=== PATIENT | female | born 1985 | race Two or more races ===

== ENCOUNTER → 2024-05-14 | Outpatient (CLI) | payer OTHER | LOC: M PLALAB 10:56 | PROVIDERS: ATTEND Nurse Practitioner Women's Health | DX: O09.511 Supervision of elderly primigravida, first trimester (principal); Z3A.11 11 weeks gestation of pregnancy ==

== ENCOUNTER → 2024-05-15 | Outpatient (CLI) | payer OTHER | LOC: M RAD 13:50 | PROVIDERS: ATTEND Nurse Practitioner Women's Health | DX: O09.511 Supervision of elderly primigravida, first trimester (principal); Z3A.01 Less than 8 weeks gestation of pregnancy ==

== ENCOUNTER → 2024-05-16 | Outpatient (CLI) | payer OTHER | LOC: M PLALAB 12:33 | PROVIDERS: ATTEND Nurse Practitioner Women's Health | DX: O09.511 Supervision of elderly primigravida, first trimester (principal); Z3A.11 11 weeks gestation of pregnancy ==

== ENCOUNTER → 2024-05-22 | Outpatient (CLI) | payer OTHER | LOC: M PLALAB 07:38 | PROVIDERS: ATTEND Nurse Practitioner Women's Health | DX: O02.1 Missed abortion (principal) ==

== ENCOUNTER → 2025-04-15 | Outpatient (CLI) | payer BC | LOC: M LAB 09:42 | PROVIDERS: ATTEND Obstetrics & Gynecology | DX: O30.001 Twin pregnancy, unspecified number of placenta and unspecified number of amniotic sacs, first trimester (principal); Z3A.00 Weeks of gestation of pregnancy not specified ==

== ENCOUNTER → 2025-04-23 | Outpatient (CLI) | payer BC | LOC: M WHC 14:09 | PROVIDERS: ATTEND Obstetrics & Gynecology | DX: O30.001 Twin pregnancy, unspecified number of placenta and unspecified number of amniotic sacs, first trimester (principal); Z3A.14 14 weeks gestation of pregnancy ==

== ENCOUNTER → 2025-04-29 | Outpatient (REF) | payer BC ==
[2025-04-29 13:36] LABS: APPEARANCE, URINE CLEAR (CLEAR); BACTERIA, URINE AUTO 1+ (NEGATIVE); BILIRUBIN, URINE AUTO NEGATIVE (NEGATIVE); BLOOD, URINE BLOOD 2+ (NEGATIVE); GLUCOSE, URINE (UA) AUTO NEGATIVE (NEGATIVE); KETONE, URINE AUTO NEGATIVE (NEGATIVE); LEUKOCYTE ESTERASE, URINE AUTO 1+ (NEGATIVE); NITRITE, URINE AUTO NEGATIVE (NEGATIVE); PROTEIN, URINE AUTO NEGATIVE (NEGATIVE); RBC, URINE AUTO 3 /HPF (0-3); SPECIFIC GRAVITY URINE AUTO 1.005 (1.002-1.035); SQUAMOUS EPITHELIAL CELL UR AU 1 /HPF (0-6); UROBILINOGEN, URINE AUTO 0.2 mg/dL (0.0-2.0); WBC, URINE AUTO 3 /HPF (0-3)
== END ==
LOC: M SFHCWAGY 12:50
PROVIDERS: ATTEND Obstetrics & Gynecology
DX: O30.001 Twin pregnancy, unspecified number of placenta and unspecified number of amniotic sacs, first trimester (principal)

== ENCOUNTER → 2025-05-27 | Outpatient (CLI) | payer BC ==
[2025-05-27 15:45] LABS: PLATELET COUNT, AUTOMATED 311 10^3/uL (150-450)
[2025-05-27 16:50] LABS: HIV 1&2 SCREEN NEGATIVE (NEGATIVE)
[2025-05-27 16:52] LABS: Trichomonas vaginalis (AMP) NOT DETECTED (NEGATIVE)
[2025-05-27 16:57] LABS: HEPATITIS C VIRUS ABY INDEX < 0.02 INDEX (<0.8)
[2025-05-27 17:15] LABS: GC DNA AMPLIFICATION NEGATIVE (NEGATIVE)
== END ==
LOC: M PLALAB 14:10
PROVIDERS: ATTEND Obstetrics & Gynecology
DX: Z34.81 Encounter for supervision of other normal pregnancy, first trimester (principal)

== ENCOUNTER → 2025-06-08 | Outpatient (CLI) | payer BC | LOC: M WHC 08:07 | PROVIDERS: ATTEND Obstetrics & Gynecology | DX: O30.032 Twin pregnancy, monochorionic/diamniotic, second trimester (principal); Z3A.19 19 weeks gestation of pregnancy ==

== ENCOUNTER → 2025-07-15 | Outpatient (REF) | payer BC ==
[2025-07-15 13:37] LABS: APPEARANCE, URINE HAZY (CLEAR); BACTERIA, URINE AUTO 1+ (NEGATIVE); BILIRUBIN, URINE AUTO NEGATIVE (NEGATIVE); BLOOD, URINE BLOOD 1+ (NEGATIVE); GLUCOSE, URINE (UA) AUTO NEGATIVE (NEGATIVE); KETONE, URINE AUTO NEGATIVE (NEGATIVE); LEUKOCYTE ESTERASE, URINE AUTO 1+ (NEGATIVE); NITRITE, URINE AUTO NEGATIVE (NEGATIVE); PROTEIN, URINE AUTO NEGATIVE (NEGATIVE); RBC, URINE AUTO 1 /HPF (0-3); SPECIFIC GRAVITY URINE AUTO 1.005 (1.002-1.035); SQUAMOUS EPITHELIAL CELL UR AU 1 /HPF (0-6); UROBILINOGEN, URINE AUTO 0.2 mg/dL (0.0-2.0); WBC, URINE AUTO 2 /HPF (0-3)
== END ==
LOC: M LAB REF 12:59
PROVIDERS: ATTEND Advanced Practice Midwife
DX: R30.0 Dysuria (principal)

== ENCOUNTER → 2025-07-17 | Outpatient (CLI) | payer BC ==
[~2025-07-17] MED LIST: CALC500C15 PO; PRENTAB9 PO; VITAD400CA FT
== END ==
LOC: M RAD 10:06
PROVIDERS: ATTEND Obstetrics & Gynecology
DX: O30.032 Twin pregnancy, monochorionic/diamniotic, second trimester (principal); O09.522 Supervision of elderly multigravida, second trimester; O09.292 Supervision of pregnancy with other poor reproductive or obstetric history, second trimester; Z3A.25 25 weeks gestation of pregnancy

== ENCOUNTER → 2025-07-22 | Outpatient (CLI) | payer BC ==
[2025-07-22 11:30] LABS: PLATELET COUNT, AUTOMATED 335 10^3/uL (150-450)
[2025-07-22 12:00] LABS: GLUCOSE CHALLENGE TEST 1 HOUR 133 MG/DL (LESS THAN 140)
[2025-07-22 12:36] LABS: HIV 1&2 SCREEN NEGATIVE (NEGATIVE)
[2025-07-22 12:44] LABS: HEPATITIS C VIRUS ABY INDEX < 0.02 INDEX (<0.8)
[2025-07-22 12:53] LABS: Trichomonas vaginalis (AMP) NOT DETECTED (NEGATIVE)
[2025-07-22 13:17] LABS: GC DNA AMPLIFICATION NEGATIVE (NEGATIVE)
== END ==
LOC: M PLALAB 08:23
PROVIDERS: ATTEND Obstetrics & Gynecology
DX: O30.032 Twin pregnancy, monochorionic/diamniotic, second trimester (principal); Z3A.00 Weeks of gestation of pregnancy not specified
CPT/HCPCS: 36415; 82950; 85027; 86780; 86803; 86850; 86900; 86901; 87389; 87661; 87810; 87850; J2790

== ENCOUNTER → 2025-08-25 | Outpatient (CLI) | payer BC | LOC: M RAD 14:30 | PROVIDERS: ATTEND Obstetrics & Gynecology | DX: O30.033 Twin pregnancy, monochorionic/diamniotic, third trimester (principal); Z3A.31 31 weeks gestation of pregnancy ==

== ENCOUNTER → 2025-08-28 | Outpatient (CLI) | payer BC | LOC: M WHC 10:59 | PROVIDERS: ATTEND Obstetrics & Gynecology | DX: O30.033 Twin pregnancy, monochorionic/diamniotic, third trimester (principal); Z3A.31 31 weeks gestation of pregnancy ==

== ENCOUNTER → 2025-09-02 | Outpatient (CLI) | payer BC | LOC: M WHC 07:52 | PROVIDERS: ATTEND Obstetrics & Gynecology | DX: O30.033 Twin pregnancy, monochorionic/diamniotic, third trimester (principal) ==

== ENCOUNTER → 2025-09-03 | Outpatient (CLI) | payer BC | LOC: M WHC 09:30 | PROVIDERS: ATTEND Obstetrics & Gynecology | DX: O30.033 Twin pregnancy, monochorionic/diamniotic, third trimester (principal); Z3A.00 Weeks of gestation of pregnancy not specified ==

== ENCOUNTER → 2025-09-08 | Outpatient (CLI) | payer BC | LOC: M WHC 06:49 | PROVIDERS: ATTEND Obstetrics & Gynecology | DX: O30.033 Twin pregnancy, monochorionic/diamniotic, third trimester (principal); Z3A.33 33 weeks gestation of pregnancy ==

== ENCOUNTER 2025-09-15 09:19 | Outpatient (CLI) | payer BC ==
[~2025-09-15] VITALS: Ht 165.1 cm; Wt 98.5 kg
[2025-09-15] MEDS: BETAMETHASONE SOLUSPAN 6 MG/ML 5 ML VIAL IM SCH (10:47)
[2025-09-15] MEDS ORDERED: VITAD400CA FT (12:19)
[2025-09-15] MEDS ORDERED: CALC500C15 PO (12:19)
[2025-09-15] MEDS ORDERED: PRENTAB9 PO (12:19)
[2025-09-15] MEDS ORDERED: HOME MED LIST COMPLETE! XX SCH (12:50)
[2025-09-21] MEDS ORDERED: IBUP80TA PO (06:11)
[2025-09-21] MEDS ORDERED: OXYC-517 PO (06:11)
[2025-09-23] MEDS ORDERED: NIFE1TAB52 PO (12:01)
[2025-09-23] MEDS ORDERED: ACET-683 PO (12:01)
== END 2025-09-15 10:50 | disposition home or self-care (01) ==
LOC: M LDO 09:19
PROVIDERS: ATTEND Student in an Organized Health Care Education/Training Program
DX: O30.033 Twin pregnancy, monochorionic/diamniotic, third trimester (principal); Z3A.33 33 weeks gestation of pregnancy
CPT/HCPCS: 59025; 96372; G0463; J0702

== ENCOUNTER 2025-09-16 11:49 | Outpatient (CLI) | payer BC ==
[~2025-09-16] VITALS: Ht 165.1 cm; Wt 98.3 kg
[2025-09-16] MEDS ORDERED: HOME MED LIST COMPLETE! XX SCH (12:00)
[2025-09-16 12:02] VITALS: BP 165/74
[2025-09-16] MEDS: BETAMETHASONE SOLUSPAN 6 MG/ML 5 ML VIAL IM ONE (12:05)
[2025-09-16 12:18] VITALS: BP 148/71
[2025-09-16 12:32] VITALS: BP 143/75
[2025-09-16 13:52] LABS: PLATELET COUNT, AUTOMATED 180 10^3/uL (150-450)
[2025-09-16 14:12] LABS: LDH LACTATE DEHYDROGENASE 208 U/L (120-246)
[2025-09-16 14:13] LABS: ALT/SGPT 15 U/L (7.0-40); AST/SGOT 21 U/L (<34); CREATININE FOR GFR 0.72 MG/DL (0.55-1.30); GLOMERULAR FILTRATION RATE > 90.0 (>60)
[2025-09-16 14:18] LABS: TOTAL PROTEIN,RANDOM URINE 59.6 MG/DL (0.0-14.0)
[2025-09-21] MEDS ORDERED: IBUP80TA PO (06:11)
[2025-09-21] MEDS ORDERED: OXYC-517 PO (06:11)
== END 2025-09-16 14:50 | disposition home or self-care (01) ==
LOC: M LDO 11:49
PROVIDERS: ATTEND Advanced Practice Midwife
DX: O30.033 Twin pregnancy, monochorionic/diamniotic, third trimester (principal); O14.93 Unspecified pre-eclampsia, third trimester; Z3A.33 33 weeks gestation of pregnancy
CPT/HCPCS: 36415; 59025; 82247; 82570; 83615; 84156; 84450; 84460; 84550; 85027; 96372; G0463; J0702

== ENCOUNTER → 2025-09-16 | Outpatient (CLI) | payer BC | LOC: M WHC 09:55 | PROVIDERS: ATTEND Obstetrics & Gynecology | DX: O30.033 Twin pregnancy, monochorionic/diamniotic, third trimester (principal); Z3A.00 Weeks of gestation of pregnancy not specified ==